=== PATIENT | male | born 1995 | race Caucasian/White ===

== ENCOUNTER 2017-10-02 12:15 | Emergency (ER) | payer OTHER, SELFPAY ==
[2017-10-02] MEDS ORDERED: Lidocaine 1% (PF) 30 ML VIAL ONE (13:55)
[2017-10-02] MEDS ORDERED: Bacitracin Zinc 1 Packet ONE (14:51)
== END 2017-10-02 15:00 | disposition home or self-care (01) ==
LOC: ERS 12:15
DX: H60.02 Abscess of left external ear (principal); F17.210 Nicotine dependence, cigarettes, uncomplicated; Z87.442 Personal history of urinary calculi
CPT/HCPCS: 69000; 99406; J2001

== ENCOUNTER 2018-07-10 23:08 | Emergency (ER) | payer BC, SELFPAY | END 2018-07-10 23:33 | disposition home or self-care (01) | LOC: ERS 23:08 | DX: L72.3 Sebaceous cyst (principal); F17.210 Nicotine dependence, cigarettes, uncomplicated; Z87.442 Personal history of urinary calculi | CPT/HCPCS: 99282 ==